=== PATIENT | male | born 1975 | race Caucasian/White ===

== ENCOUNTER 2020-05-29 18:11 | Emergency (ER) | payer OTHER ==
[~2020-05-29] VITALS: Ht 170.2 cm; Wt 155.6 kg
[2020-05-29 19:05] VITALS: Ht 170.2 cm; Wt 155.6 kg
[2020-05-29 22:15] VITALS: BP 136/96
== END 2020-05-29 22:15 | disposition home or self-care (01) ==
LOC: ED 18:11
DX: F41.9 Anxiety disorder, unspecified (principal); I10 Essential (primary) hypertension; E78.00 Pure hypercholesterolemia, unspecified
CPT/HCPCS: 82962; Q0092